=== PATIENT | female | born 1975 | race Two or more races ===

== ENCOUNTER 2018-10-02 20:38 | Emergency (ER) | payer BC ==
[~2018-10-02] VITALS: Ht 170.2 cm; Wt 84.8 kg
[2018-10-02 21:19] VITALS: BP 132/78
== END 2018-10-03 02:38 | disposition left against medical advice (07) ==
LOC: ER 20:38
DX: N20.0 Calculus of kidney (principal); Z53.21 Procedure and treatment not carried out due to patient leaving prior to being seen by health care provider